=== PATIENT | female | born 1985 | race Caucasian/White ===

== ENCOUNTER 2022-11-28 20:11 | Emergency (ER) | payer OTHER ==
[~2022-11-28] VITALS: Ht 160 cm; Wt 96.8 kg
[~2022-11-28 20:11] MED LIST: DSS100 PO; FERR325T27 PO; IBUP-1493 PO; PERCT PO; PREN1TAB80 PO
[2022-11-28] MEDS ORDERED: SODIUM CHLORIDE 0.9% 1,000 ML IV ONE (20:45)
[2022-11-28] MEDS ORDERED: KETOROLAC TROMETHAMINE 30 MG/ML VIAL IVP ONE (20:45)
[2022-11-28] MEDS ORDERED: FAMOTIDINE 10 MG/ML 2 ML VIAL IVP ONE (20:45)
[2022-11-28 21:06] LABS: BASOPHILS % (AUTO) 0.5 % (0.0-2.0); EOSINOPHILS % (AUTO) 0.8 % (1.0-6.0); HEMATOCRIT 38.3 % (36-46); LYMPHOCYTES # (AUTO) 2.2 K/uL (1.0-4.8); LYMPHOCYTES % (AUTO) 20.4 % (22.0-44.0); MEAN CORPUSCULAR HEMOGLOBIN 31.3 pg (26.0-34.0); MEAN CORPUSCULAR HGB CONC 33.8 G/dL (31.0-37.0); MEAN CORPUSCULAR VOLUME 93 fL (80-100); MONOCYTES # (AUTO) 0.8 K/uL (0.1-1.0); MONOCYTES % (AUTO) 6.9 % (2.0-9.0); NEUTROPHILS # (AUTO) 7.8 K/uL (1.8-7.7); NEUTROPHILS % (AUTO) 71.4 % (40.0-70.0); PLATELET COUNT (AUTO) 276 K/uL (150-450); RED BLOOD CELL COUNT(AUTO) 4.14 MIL/uL (4.00-5.20); RED CELL DISTRIBUTION WIDTH 13.1 % (11.5-14.5)
[2022-11-28 21:15] LABS: ANION GAP 9 mmol/L (8-16); CALCIUM, TOTAL 8.4 mg/dL (8.8-10.5); CARBON DIOXIDE 27 mmol/L (22-29); CHLORIDE 105 mmol/L (98-107); CREATININE 0.65 mg/dL (0.60-1.30); GLUCOSE,RANDOM 107 mg/dL (70-110); POTASSIUM 3.6 mmol/L (3.5-5.1); SODIUM SERUM 141 mmol/L (136-145); UREA NITROGEN, BLOOD 11 mg/dL (7-18)
[2022-11-28 21:25] LABS: GLOMERULAR FILTR. RATE CALC > 60 mL/min (>60)
[2022-11-28 21:26] LABS: ALANINE AMINOTRANSFERASE 59 U/L (12-78); ALBUMIN 3.5 g/dL (3.4-5.0); ALKALINE PHOSPHATASE 99 U/L (46-116); ASPARTATE AMINOTRANSFERASE 20 U/L (15-37); BILIRUBIN,TOTAL 0.3 mg/dL (0.1-1.0); HCG,QUANTITATIVE < 1 mIU/mL (0-6); LIPASE 117 U/L (73-393); TOTAL PROTEIN, SERUM 7.2 g/dL (6.4-8.2)
[2022-11-28] MEDS ORDERED: IOHEXOL 350 MG/ML 100 ML VIAL ONE (21:42)
[2022-11-29 01:15] LABS: APPEARANCE,URINE CLEAR (CLEAR); BILIRUBIN,URINE NEGATIVE (NEGATIVE); GLUCOSE, URINE (UA) NEGATIVE (NEGATIVE); KETONES,URINE NEGATIVE (NEGATIVE); LEUKOCYTE ESTERASE ,URINE NEGATIVE (NEGATIVE); NITRATE,URINE NEGATIVE (NEGATIVE); OCCULT BLOOD,URINE NEGATIVE (NEGATIVE); PROTEIN,URINE NEGATIVE (NEGATIVE); UROBILINOGEN,URINE <=1.0 mg/dL (<=1.0)
[2022-11-29 01:17] LABS: SPECIFIC GRAVITIY, URINE 1.015 (1.003-1.030)
[2022-11-29] MEDS ORDERED: HYDROCODONE/ACETAMINOPHEN 5-325 MG TABLET PO ONE (02:00)
[2022-11-29] MEDS ORDERED: IBUP-1554 PO (04:49)
[2022-11-29] MEDS ORDERED: POLY238P PO (04:49)
[2022-11-29] MEDS ORDERED: OMEP20 PO (04:49)
[2022-11-29] MEDS ORDERED: HYDR-4723 PO (04:49)
[2022-11-29] MEDS ORDERED: MAG30ORA11 PO (04:49)
[2022-11-29 04:50] VITALS: BP 131/86
== END 2022-11-29 05:07 | disposition home or self-care (01) ==
LOC: EMS 20:25
DX: R10.32 Left lower quadrant pain (principal); N83.202 Unspecified ovarian cyst, left side; E05.90 Thyrotoxicosis, unspecified without thyrotoxic crisis or storm; E03.9 Hypothyroidism, unspecified
CPT/HCPCS: 99285; 96374; 96361; 96375; 80053; 81003; 83690; 84702; 85025; 36415; 74177; 76856; J3490; J1885; Q9967; J7030

== ENCOUNTER 2024-01-14 06:19 | Emergency (ER) | payer OTHER ==
[~2024-01-14] VITALS: Ht 160 cm; Wt 109.0 kg
[~2024-01-14 06:19] MED LIST changes: +HYDR-4723 PO; +IBUP-1554 PO; +MAG30ORA11 PO; +OMEP20 PO; +POLY238P PO
[2024-01-14 06:27] VITALS: BP 140/76; PULSE 72; RESP 20; TEMP 98.3
[2024-01-14] MEDS: METHOCARBAMOL 500 MG TABLET PO ONE (07:44)
[2024-01-14] MEDS: KETOROLAC TROMETHAMINE 60 MG/2 ML VIAL IM ONE (07:44)
[2024-01-14] MEDS ORDERED: METH-659 PO (08:48)
[2024-01-14] MEDS ORDERED: IBUP-1492 PO (08:48)
== END 2024-01-14 09:02 | disposition home or self-care (01) ==
LOC: EMS 06:19
DX: S16.1XXA Strain of muscle, fascia and tendon at neck level, initial encounter (principal); E03.9 Hypothyroidism, unspecified; X58.XXXA Exposure to other specified factors, initial encounter; Y93.89 Activity, other specified; Y92.89 Other specified places as the place of occurrence of the external cause; Y99.8 Other external cause status
CPT/HCPCS: 99283; 96372; J1885